=== PATIENT | male | born 1960 | race Caucasian/White ===

== ENCOUNTER 2021-03-21 14:30 | Inpatient (IN) ==
[~2021-03-21 14:30] MED LIST: ACETAMINOPHEN 325 MG TABLET PO PRN; HYDROmorphone 2 MG/1 ML VIAL ONE; LIDOCAINE 1% 20 ML VIAL ONE; MIDAZOLAM 2 MG/2 ML VIAL ONE
[2021-03-21] MEDS ORDERED: HEPARIN 5,000 UNIT/1 ML VIAL ONE (14:42)
[2021-03-21] MEDS ORDERED: TIROFIBAN 5,000 MCG/100 ML PREMIX IV ONE (14:46)
[2021-03-21] MEDS ORDERED: TIROFIBAN 5,000 MCG/100 ML PREMIX IV SCH (14:50)
[2021-03-21 15:08] LABS: Basophils % 0.3 % (0.0-0.8); Eosinophils # 0.1 10*3/uL (0.0-0.87); Eosinophils % 0.6 % (0.00-10.9); Hematocrit 38.5 VOL% (42.0-52.0); Hemoglobin 13.1 GM/DL (14.0-18.0); Immature Granulocytes % 0.5 %; Immature Granulocytes Absolute 0.06 #; Lymphocytes % 18.1 % (21.2-54.2); Mean Corpuscular Volume 94.6 FL (87-102); Monocytes % 5.2 % (1.7-12.7); Neutrophils % 75.3 % (38.7-73.9); Platelet Count 231 T/CUMM (130-400); Red Blood Count 4.07 MC/CUMM (3.8-5.5); Red Cell Distribution Width 12.3 % (9.3-17.3); White Blood Count 11.2 T/CUMM (4-12)
[2021-03-21] MEDS ORDERED: ASPIRIN CHEW 81 MG TABLET PO ONE (15:09)
[2021-03-21] MEDS ORDERED: ZALEPLON 5 MG CAPSULE PO PRN (15:23)
[2021-03-21] MEDS ORDERED: ONDANSETRON 4 MG/2 ML VIAL ONE (15:31)
[2021-03-21 15:33] LABS: Albumin 3.3 G/DL (3.4-5.0); Bilirubin,Total 0.5 MG/DL (0.20-1.00); Calcium 8.4 MG/DL (8.5-10.1); Osmolality,Calculated 280.7 MOS/KG (273-304); Potassium 3.4 MMOL/L (3.5-5.1); Total Protein 6.7 G/DL (6.4-8.2)
[2021-03-21] MEDS: ONDANSETRON 4 MG/2 ML VIAL IV PRN ×2 (15:33→22:06)
[2021-03-21] MEDS: SODIUM CHLORIDE 0.45% 1,000 ML IV SCH ×3 (16:00→23:35)
[2021-03-21] MEDS: ROSUVASTATIN 20 MG TABLET PO SCH (20:12)
[2021-03-21] MEDS: TICAGRELOR 90 MG TABLET PO SCH (20:12)
[2021-03-21] MEDS: MORPHINE 2 MG/1 ML SYRINGE IV PRN (22:05)
[2021-03-22] MEDS: MORPHINE 2 MG/1 ML SYRINGE IV PRN (02:28)
[2021-03-22] MEDS: ONDANSETRON 4 MG/2 ML VIAL IV PRN (02:29)
[2021-03-22] MEDS ORDERED: NITROGLYCERIN SL 0.4 MG TABLET SL PRN (04:03)
[2021-03-22] MEDS ORDERED: NITROGLYCERIN SL 0.4 MG TABLET SL ONE (04:06)
[2021-03-22] MEDS ORDERED: NITROGLYCERIN DRIP 50 MG/250 ML BOTTLE IV ONE (04:15)
[2021-03-22] MEDS ORDERED: NITROGLYCERIN DRIP 50 MG/250 ML BOTTLE IV PRN (04:15)
[2021-03-22] MEDS ORDERED: MORPHINE 2 MG/1 ML SYRINGE IV PRN (04:15)
[2021-03-22 04:24] LABS: Basophils % 0.2 % (0.0-0.8); Eosinophils # 0.1 10*3/uL (0.0-0.87); Eosinophils % 0.5 % (0.00-10.9); Hematocrit 40.9 VOL% (42.0-52.0); Hemoglobin 13.7 GM/DL (14.0-18.0); Immature Granulocytes % 0.5 %; Immature Granulocytes Absolute 0.06 #; Lymphocytes # 2.5 10*3/uL (1.4-4.0); Lymphocytes % 19.2 % (21.2-54.2); Mean Corpuscular HGB Conc 33.5 GM/DL (32-36); Mean Corpuscular Volume 95.8 FL (87-102); Mean Platelet Volume 9.1 FL (9.6-12.0); Monocytes % 7.1 % (1.7-12.7); Neutrophils % 72.5 % (38.7-73.9); Platelet Count 219 T/CUMM (130-400); Red Blood Count 4.27 MC/CUMM (3.8-5.5); Red Cell Distribution Width 12.7 % (9.3-17.3); White Blood Count 12.8 T/CUMM (4-12)
[2021-03-22 04:51] LABS: Calcium 8.5 MG/DL (8.5-10.1); Risk Ratio 4.95; Thyroid Stimulating Hormone 3.73 uIU/ml (0.358-3.74); VLDL Cholesterol 26.4 MG/DL
[2021-03-22] MEDS: PANTOPRAZOLE 40 MG TABLET PO SCH (08:11)
[2021-03-22] MEDS: ASPIRIN EC 81 MG TABLET PO SCH (08:11)
[2021-03-22] MEDS: TICAGRELOR 90 MG TABLET PO SCH ×2 (08:11→20:40)
[2021-03-22] MEDS: lisinopriL 2.5 MG TABLET PO SCH (10:21)
[2021-03-22] MEDS: carvediloL 3.125 MG TABLET PO SCH (17:30)
[2021-03-22] MEDS: ROSUVASTATIN 20 MG TABLET PO SCH (20:39)
[2021-03-23 05:07] LABS: Basophils % 0.3 % (0.0-0.8); Eosinophils # 0.1 10*3/uL (0.0-0.87); Eosinophils % 1.4 % (0.00-10.9); Hematocrit 41.1 VOL% (42.0-52.0); Hemoglobin 13.8 GM/DL (14.0-18.0); Immature Granulocytes % 0.4 %; Immature Granulocytes Absolute 0.03 #; Lymphocytes # 2.2 10*3/uL (1.4-4.0); Lymphocytes % 27.7 % (21.2-54.2); Mean Corpuscular HGB Conc 33.6 GM/DL (32-36); Mean Corpuscular Volume 96.3 FL (87-102); Mean Platelet Volume 9.2 FL (9.6-12.0); Monocytes % 8.6 % (1.7-12.7); Neutrophils % 61.6 % (38.7-73.9); Platelet Count 220 T/CUMM (130-400); Red Blood Count 4.27 MC/CUMM (3.8-5.5); Red Cell Distribution Width 12.4 % (9.3-17.3); White Blood Count 7.9 T/CUMM (4-12)
[2021-03-23 05:26] LABS: Calcium 8.9 MG/DL (8.5-10.1); Potassium 4.1 MMOL/L (3.5-5.1)
[2021-03-23 08:33] VITALS: BP 110/74
[2021-03-23] MEDS ORDERED: EMTRICITAB RILPIVIR TENOFO ALA PO SCH (09:00)
[2021-03-23] MEDS: carvediloL 3.125 MG TABLET PO SCH (09:50)
[2021-03-23] MEDS: lisinopriL 2.5 MG TABLET PO SCH (09:50)
[2021-03-23] MEDS: TICAGRELOR 90 MG TABLET PO SCH (09:51)
[2021-03-23] MEDS: PANTOPRAZOLE 40 MG TABLET PO SCH (09:51)
[2021-03-23] MEDS: ASPIRIN EC 81 MG TABLET PO SCH (09:54)
== END 2021-03-23 12:00 | disposition home or self-care (01) | DRG 247 ==
LOC: N.ICU 14:40 → N.TELES 03-22 16:03
PROVIDERS: ADMIT Internal Medicine Cardiovascular Disease; ATTEND Internal Medicine Cardiovascular Disease
PROC: CLCCHCL (ICD-10-PCS; 2021-03-21 14:45)